=== PATIENT | male | born 1990 | race Caucasian/White ===

== ENCOUNTER 2025-03-04 18:27 | Emergency (ER) | payer OTHER ==
[~2025-03-04] VITALS: Ht 165.1 cm; Wt 81.6 kg
[2025-03-04 18:53] VITALS: PULSE 81; RESP 16; TEMP 98.6
[2025-03-04] MEDS ORDERED: BUPIVACAINE HCL 0.25% 10ML MPF VIAL INJ ONE (19:10)
[2025-03-04] MEDS: BUPIVACAINE 0.25% 30ML SDV INJ ONE (19:23)
[2025-03-04] MEDS: BACITRACIN ZINC 0.9GM TP ONE (19:57)
[2025-03-04 20:14] VITALS: BP 120/96; PULSE 81; RESP 18; TEMP 98.5; O2SAT 98
== END 2025-03-04 20:20 | disposition home or self-care (01) ==
LOC: ER 18:59
DX: S61.216A Laceration without foreign body of right little finger without damage to nail, initial encounter (principal); W25.XXXA Contact with sharp glass, initial encounter; Y99.0 Civilian activity done for income or pay
CPT/HCPCS: 99283